=== PATIENT | male | born 1975 | race Caucasian/White ===

== ENCOUNTER 2020-05-24 03:37 | Emergency (ER) | payer OTHER ==
[~2020-05-24] VITALS: Ht 180.3 cm; Wt 99.9 kg
[2020-05-24 03:38] VITALS: BP 153/74
[2020-05-24] MEDS ORDERED: ALBU83IN NEB (03:53)
[2020-05-24] MEDS ORDERED: ROPI4TAB21 PO (03:53)
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
== END 2020-05-24 04:50 | disposition left against medical advice (07) ==
LOC: M ED 03:37
DX: S06.0X0A Concussion without loss of consciousness, initial encounter (principal); S39.012A Strain of muscle, fascia and tendon of lower back, initial encounter; S30.1XXA Contusion of abdominal wall, initial encounter; S80.01XA Contusion of right knee, initial encounter; V43.52XA Car driver injured in collision with other type car in traffic accident, initial encounter; Y92.410 Unspecified street and highway as the place of occurrence of the external cause; Y93.9 Activity, unspecified; Y99.9 Unspecified external cause status; E11.9 Type 2 diabetes mellitus without complications; I10 Essential (primary) hypertension; F17.200 Nicotine dependence, unspecified, uncomplicated; Z91.89 Other specified personal risk factors, not elsewhere classified; Z91.013 Allergy to seafood

== ENCOUNTER → 2022-04-18 | Outpatient (REF) ==
[~2022-04-18] MED LIST: ALBU2.5V10 NEB; ROPI4TAB21 PO
== END ==
LOC: M RAD 16:51
PROVIDERS: ATTEND Internal Medicine
DX: R22.0 Localized swelling, mass and lump, head (principal)

== ENCOUNTER 2023-09-25 07:10 | Day surgery (SDC) | payer OTHER ==
[~2023-09-25] VITALS: Ht 180.3 cm; Wt 94.4 kg
[~2023-09-25 07:10] MED LIST changes: +ALTA1CAP2 PO; +NS 1,000 ML IV ONE; +ROSU40TA4 PO; +SEMA0.257 SQ; +SYNJ1TAB15 PO; +VARE1TAB7 PO; +VITMTA PO; +glargine insulin SC
[2023-09-25] MEDS ORDERED: propofoL 200 MG/20 ML VIAL As Ordered ONE ×2 (07:31→08:32)
[2023-09-25] MEDS ORDERED: LIDOCAINE 2% 100MG/5ML SDV (FOR ANES.) As Ordered ONE (07:31)
[2023-09-25] MEDS ORDERED: fentaNYL 100 MCG/2 ML INJECTION As Ordered ONE (07:31)
[2023-09-25 08:52] VITALS: TEMP 97.8
[2023-09-25 09:15] VITALS: BP 114/61; O2SAT 98
== END 2023-09-25 09:23 | disposition home or self-care (01) ==
LOC: M OPP 07:10
PROVIDERS: ATTEND Surgery
DX: Z12.11 Encounter for screening for malignant neoplasm of colon (principal); K64.9 Unspecified hemorrhoids; K63.5 Polyp of colon; K31.89 Other diseases of stomach and duodenum; R10.13 Epigastric pain; R12 Heartburn; F17.200 Nicotine dependence, unspecified, uncomplicated; E11.9 Type 2 diabetes mellitus without complications; G47.30 Sleep apnea, unspecified; Z79.02 Long term (current) use of antithrombotics/antiplatelets; Z79.51 Long term (current) use of inhaled steroids; Z79.811 Long term (current) use of aromatase inhibitors; Z79.85 Long-term (current) use of injectable non-insulin antidiabetic drugs; Z91.013 Allergy to seafood; Z91.041 Radiographic dye allergy status
CPT/HCPCS: 43239; 45385; 88305; J3010